=== PATIENT | female | born 1990 | race American Indian/Alaskan Native ===

== ENCOUNTER 2021-11-06 08:52 | Emergency (ER) | payer BC ==
[2021-11-06 09:12] VITALS: BP 128/81
[2021-11-06 10:07] LABS: Mucus,Urine 3+ /HPF
[2021-11-06 10:09] LABS: RBC,Urine > 182.0 /HPF (0.0-6.0)
[2021-11-06] MEDS ORDERED: SODIUM CHLORIDE 0.9% 1000 ML 1,000 ML ONE (10:10)
[2021-11-06 10:13] LABS: Color,Urine Yellow (Yellow)
[2021-11-06] MEDS ORDERED: ONDANSETRON 4 MG/2 ML INJ ONE (10:13)
[2021-11-06 10:18] LABS: Basophils % (Auto) 0.2 % (0.0-1.8); Hematocrit 38.6 % (30.3-42.9); Hemoglobin 13.1 gm/dl (10.1-14.3); Lymphocytes # (Auto) 1.5 K/mm3 (1.2-5.4); Lymphocytes % (Auto) 19.3 % (13.4-35.0); Mean Corpuscular HGB Conc 34 % (30-34); Mean Corpuscular Volume 96 fl (79-97); Monocytes # (Auto) 0.8 K/mm3 (0.0-0.8); Monocytes % (Auto) 9.8 % (0.0-7.3); Platelet Count 215 K/mm3 (140-440); Red Blood Count 4.02 M/mm3 (3.65-5.03)
[2021-11-06] MEDS ORDERED: ONDANSETRON 4 MG/2 ML INJ IV ONE ×2 (10:30→11:49)
[2021-11-06] MEDS ORDERED: SODIUM CHLORIDE 0.9% 1000 ML 1,000 ML IV ONE (10:30)
[2021-11-06 10:35] LABS: Alanine Aminotransferase 11 units/L (7-56); Albumin 5.5 g/dL (3.9-5); Blood Urea Nitrogen 14 mg/dL (7-17); Calcium 10.4 mg/dL (8.4-10.2); Hemolysis Index 4
[2021-11-06 10:46] LABS: BUN/Creatinine Ratio 23
[2021-11-06] MEDS ORDERED: cefTRIAXone/NS 1 GM/50 ML 1 GM/50 ML BAG IV ONE (11:49)
--- NOTE | 2021-11-06 12:09 | Emergency Department Report ---
ED Abdominal Pain HPI - General Chief Complaint: Nausea/Vomiting/Diarrhea Stated Complaint: VOMITTING PUI?: No Time Seen by Provider: 11/06/21 11:42 Source: patient Mode of arrival: Ambulatory Limitations: No Limitations - History of Present Illness Initial Comments: 31 yo comes to ER with 1 day hx on nausea/vomiting She has been seen at several hospitals for this in the past year. She has not follow up. She has been told this is related to her THC use. She continues to smoke weed. Abd pain only when vomiting no fever no chills no back pain no vag d/c or bleeding LMP 1 week ago Severity scale (0 -10): 7 - Related Data Previous Rx's Medication Instructions Recorded Last Taken Type Ondansetron [Zofran Odt] 4 mg PO Q8HR PRN #10 tab.rapdis 11/06/21 Unknown Rx Sulfamethoxazole/Trimethoprim 1 each PO BID #10 tablet 11/06/21 Unknown Rx [Bactrim DS TAB] Hyoscyamine Subl [Levsin Sl 0.125 0.125 mg SL Q6HR #20 tab 11/08/21 Unknown Rx TAB] Omeprazole 40 mg PO DAILY #30 11/08/21 Unknown Rx Ondansetron [Zofran Odt] 4 mg PO Q8HR #20 tab.rapdis 11/08/21 Unknown Rx Allergies Allergy/AdvReac Type Severity Reaction Status Date / Time No Known Allergies Allergy Verified 11/06/21 09:13 ED Review of Systems ROS: Stated complaint: VOMITTING Other details as noted in HPI Comment: All other systems reviewed and negative ED Past Medical Hx - Past Medical History Previous Medical History?: Yes - Surgical History Past Surgical History?: Yes Additional Surgical History: ACL RT KNEE 2012 - Family History Family history: no significant - Social History Smoking Status: Current Every Day Smoker Substance Use Type: Alcohol, Marijuana - Medications Home Medications: Home Medications Medication Instructions Recorded Confirmed Last Taken Type Ondansetron [Zofran Odt] 4 mg PO Q8HR PRN #10 tab.rapdis 11/06/21 Unknown Rx Sulfamethoxazole/Trimethoprim 1 each PO BID #10 tablet 11/06/21 Unknown Rx [Bactrim DS TAB] Hyoscyamine Subl [Levsin Sl 0.125 0.125 mg SL Q6HR #20 tab 11/08/21 Unknown Rx TAB] Omeprazole 40 mg PO DAILY #30 11/08/21 Unknown Rx Ondansetron [Zofran Odt] 4 mg PO Q8HR #20 tab.rapdis 11/08/21 Unknown Rx ED Physical Exam - General Limitations: No Limitations General appearance: alert, in no apparent distress - Head Head exam: Present: atraumatic, normocephalic - Eye Eye exam: Present: normal appearance - ENT ENT exam: Present: mucous membranes moist - Neck Neck exam: Present: normal inspection - Respiratory Respiratory exam: Present: normal lung sounds bilaterally. Absent: respiratory distress - Cardiovascular Cardiovascular Exam: Present: regular rate, normal rhythm. Absent: systolic murmur, diastolic murmur, rubs, gallop - GI/Abdominal GI/Abdominal exam: Present: soft, normal bowel sounds - Extremities Exam Extremities exam: Present: normal inspection - Back Exam Back exam: Present: normal inspection - Neurological Exam Neurological exam: Present: alert, oriented X3 - Psychiatric Psychiatric exam: Present: normal affect, normal mood - Skin Skin exam: Present: warm, dry, intact, normal color. Absent: rash ED Course Vital Signs 11/06/21 09:09 Temperature 98.6 F Pulse Rate 78 Respiratory 16 Rate Blood Pressure 128/81 [Right] O2 Sat by Pulse 100 Oximetry ED Medical Decision Making - Lab Data Result diagrams: 11/06/21 09:36 11/06/21 09:36 - Medical Decision Making Lab Results 11/06/21 11/06/21 11/06/21 Range/Units 09:27 09:36 09:36 WBC 7.9 (4.5-11.0) K/mm3 RBC 4.02 (3.65-5.03) M/mm3 Hgb 13.1 (10.1-14.3) gm/dl Hct 38.6 (30.3-42.9) % MCV 96 (79-97) fl MCH 33 H (28-32) pg MCHC 34 (30-34) % RDW 12.0 L (13.2-15.2) % Plt Count 215 (140-440) K/mm3 Lymph % (Auto) 19.3 (13.4-35.0) % [place] % (Auto) 9.8 H (0.0-7.3) % Eos % (Auto) 0.0 (0.0-4.3) % Baso % (Auto) 0.2 (0.0-1.8) % Lymph # (Auto) 1.5 (1.2-5.4) K/mm3 [place] # (Auto) 0.8 (0.0-0.8) K/mm3 Eos # (Auto) 0.0 (0.0-0.4) K/mm3 Baso # (Auto) 0.0 (0.0-0.1) K/mm3 Seg Neutrophils % 70.7 H (40.0-70.0) % Seg Neutrophils # 5.6 (1.8-7.7) K/mm3 Sodium 142 (137-145) mmol/L Potassium 3.9 (3.6-5.0) mmol/L Chloride 102.4 (98-107) mmol/L Carbon Dioxide 28 (22-30) mmol/L Anion Gap 16 mmol/L BUN 14 (7-17) mg/dL Creatinine 0.6 (0.6-1.2) mg/dL Estimated GFR > 60 ml/min BUN/Creatinine Ratio 23 % Glucose 117 H (65-100) mg/dL Calcium 10.4 H (8.4-10.2) mg/dL Total Bilirubin 0.80 (0.1-1.2) mg/dL AST 15 (5-40) units/L ALT 11 (7-56) units/L Alkaline Phosphatase 48 (35-129) units/L Total Protein 8.1 (6.3-8.2) g/dL Albumin 5.5 H (3.9-5) g/dL Albumin/Globulin Ratio 2.1 % Urine Color Yellow (Yellow) Urine Turbidity Cloudy (Clear) Specific [place] (Man) 1.020 (1.003-1.030) Ur Protein (Man) 2+ (Negative) mg/dL Ur Ketones (Man) Negative (Negative) Ur Nitrite (Man) Negative (Negative) Ur Reducing Substances Not Reportable Urine Bilirubin (Man) Negative (Negative) Urine Ictotest Not Reportable Leukocyte Esterase (Man) Trace (Negative) Urine WBC (Auto) 12.0 H (0.0-6.0) /HPF Urine RBC (Auto) > 182.0 (0.0-6.0) /HPF U Epithel Cells (Auto) 9.0 (0-13.0) /HPF Urine RBC (Manual) 3+ (Negative) Urine Mucus 3+ /HPF Vital Signs 11/06/21 09:09 Temperature 98.6 F Pulse Rate 78 Respiratory 16 Rate Blood Pressure 128/81 [Right] O2 Sat by Pulse 100 Oximetry labs noted ua noted 1L NS zofran x 2 rocephin 1 gm all while in ER on dc exam pt taking po dc home with dc plan of care including diet, meds, activity and follow up. - Differential Diagnosis uti/preg/gastrenteritis/thc/gastroparesis Critical care attestation.: If time is entered above; I have spent that time in minutes in the direct care of this critically ill patient, excluding procedure time. ED Disposition Clinical Impression: UTI (urinary tract infection), Tetrahydrocannabinol (THC) use disorder, mild, abuse, Nausea & vomiting Disposition: 01 HOME / SELF CARE / HOMELESS Is pt being admited?: No Does the pt Need Aspirin: No Condition: Stable Instructions: Cannabinoid Hyperemesis Syndrome Additional Instructions: med as ordered today stop smoking marijuana drink a lot of water follow up with pcp and GI MD as we discussed referral below Prescriptions: Sulfamethoxazole/Trimethoprim [Bactrim DS TAB] 1 each PO BID #10 tablet Ondansetron [Zofran Odt] 4 mg PO Q8HR PRN #10 tab.rapdis PRN Reason: Vomiting Referrals: MICHEAL FORREST MD [Staff Physician] - 3-5 Days KELLIE GALLOWAY MD [Staff Physician] - 3-5 Days Forms: Work/School Release Form(ED) Time of Disposition: 13:06
== END 2021-11-06 19:00 | disposition home or self-care (01) ==
LOC: ED 08:52
DX: N39.0 Urinary tract infection, site not specified (principal); R11.2 Nausea with vomiting, unspecified; F19.90 Other psychoactive substance use, unspecified, uncomplicated; F17.200 Nicotine dependence, unspecified, uncomplicated
CPT/HCPCS: 36415; 80053; 81001; 85025; 87086; 99283; J2405; J7030

== ENCOUNTER 2021-11-07 00:03 | Emergency (ER) | payer BC ==
[2021-11-07 00:16] VITALS: BP 118/70
== END 2021-11-07 05:05 | disposition left against medical advice (07) ==
LOC: ED 00:03
DX: R10.9 Unspecified abdominal pain (principal); Z53.21 Procedure and treatment not carried out due to patient leaving prior to being seen by health care provider

== ENCOUNTER 2021-11-07 17:22 | Emergency (ER) | payer BC ==
[2021-11-07 17:59] VITALS: BP 120/70
== END 2021-11-08 07:50 | disposition left against medical advice (07) ==
LOC: ED 17:22
DX: R04.2 Hemoptysis (principal); R10.9 Unspecified abdominal pain; Z53.21 Procedure and treatment not carried out due to patient leaving prior to being seen by health care provider

== ENCOUNTER 2021-11-08 05:35 | Emergency (ER) | payer BC ==
[2021-11-08 06:05] LABS: Basophils # (Auto) 0.1 K/mm3 (0.0-0.1); Basophils % (Auto) 0.9 % (0.0-1.8); Hematocrit 36.6 % (30.3-42.9); Hemoglobin 12.8 gm/dl (10.1-14.3); Lymphocytes # (Auto) 2.8 K/mm3 (1.2-5.4); Lymphocytes % (Auto) 42.7 % (13.4-35.0); Mean Corpuscular HGB Conc 35 % (30-34); Mean Corpuscular Volume 95 fl (79-97); Monocytes # (Auto) 0.7 K/mm3 (0.0-0.8); Monocytes % (Auto) 11.1 % (0.0-7.3); Platelet Count 206 K/mm3 (140-440); Red Blood Count 3.85 M/mm3 (3.65-5.03); Red Cell Distribution Width 11.7 % (13.2-15.2)
[2021-11-08 06:22] LABS: Alanine Aminotransferase 9 units/L (7-56); Albumin 5.1 g/dL (3.9-5); Blood Urea Nitrogen 20 mg/dL (7-17); Calcium 9.4 mg/dL (8.4-10.2); Hemolysis Index 10
[2021-11-08 06:26] LABS: BUN/Creatinine Ratio 29
[2021-11-08 10:08] LABS: HCG Qualitative,Urine Negative (Negative)
[2021-11-08] MEDS ORDERED: HYOSCYAMINE SUBL 0.125 MG TAB SL ONE (10:24)
[2021-11-08] MEDS ORDERED: METOCLOPRAMIDE 10 MG/2 ML INJ IV STA (10:24)
[2021-11-08] MEDS ORDERED: diphenhydrAMINE 50 MG/ML VIAL IV STA (10:24)
[2021-11-08] MEDS ORDERED: ONDANSETRON 4 MG/2 ML INJ IV STA ×2 (10:24→12:54)
--- NOTE | 2021-11-08 10:34 | Emergency Department Report ---
ED Abdominal Pain HPI - General Chief Complaint: Nausea/Vomiting/Diarrhea Stated Complaint: BLOOD IN VOMIT Time Seen by Provider: 11/08/21 10:07 Source: patient Mode of arrival: Ambulatory Limitations: No Limitations - History of Present Illness MD Complaint: abdominal pain -: Gradual, days(s) (5) Location: epigastric Radiation: none, LUQ Migration to: no migration Quality: cramping, stabbing Consistency: constant Improves With: nothing Worsens With: nothing Associated Symptoms: nausea, vomiting. denies: diarrhea, dysuria, hematemesis, hematuria, anorexia - Related Data Previous Rx's Medication Instructions Recorded Last Taken Type Ondansetron [Zofran Odt] 4 mg PO Q8HR PRN #10 tab.rapdis 11/06/21 Unknown Rx Sulfamethoxazole/Trimethoprim 1 each PO BID #10 tablet 11/06/21 Unknown Rx [Bactrim DS TAB] Hyoscyamine Subl [Levsin Sl 0.125 0.125 mg SL Q6HR #20 tab 11/08/21 Unknown Rx TAB] Omeprazole 40 mg PO DAILY #30 11/08/21 Unknown Rx Ondansetron [Zofran Odt] 4 mg PO Q8HR #20 tab.rapdis 11/08/21 Unknown Rx Allergies Allergy/AdvReac Type Severity Reaction Status Date / Time No Known Allergies Allergy Verified 11/06/21 09:13 ED Review of Systems ROS: Stated complaint: BLOOD IN VOMIT Other details as noted in HPI Comment: All other systems reviewed and negative ED Past Medical Hx - Surgical History Additional Surgical History: ACL RT KNEE 2012 - Social History Smoking Status: Current Every Day Smoker - Medications Home Medications: Home Medications Medication Instructions Recorded Confirmed Last Taken Type Ondansetron [Zofran Odt] 4 mg PO Q8HR PRN #10 tab.rapdis 11/06/21 Unknown Rx Sulfamethoxazole/Trimethoprim 1 each PO BID #10 tablet 11/06/21 Unknown Rx [Bactrim DS TAB] Hyoscyamine Subl [Levsin Sl 0.125 0.125 mg SL Q6HR #20 tab 11/08/21 Unknown Rx TAB] Omeprazole 40 mg PO DAILY #30 11/08/21 Unknown Rx Ondansetron [Zofran Odt] 4 mg PO Q8HR #20 tab.rapdis 11/08/21 Unknown Rx ED Physical Exam - General Limitations: No Limitations General appearance: alert, in no apparent distress - Head Head exam: Present: atraumatic, normocephalic - Eye Eye exam: Present: normal appearance, PERRL, EOMI Pupils: Present: normal accommodation - ENT ENT exam: Present: normal exam, normal orophraynx, mucous membranes moist, TM's normal bilaterally - Neck Neck exam: Present: normal inspection - Respiratory Respiratory exam: Present: normal lung sounds bilaterally. Absent: respiratory distress - Cardiovascular Cardiovascular Exam: Present: regular rate, normal rhythm. Absent: systolic murmur, diastolic murmur, rubs, gallop - GI/Abdominal GI/Abdominal exam: Present: soft, tenderness, normal bowel sounds. Absent: guarding, hyperactive bowel sounds, hypoactive bowel sounds - Extremities Exam Extremities exam: Present: normal inspection, full ROM, normal capillary refill - Back Exam Back exam: Present: normal inspection. Absent: CVA tenderness (R), CVA tenderness (L) - Neurological Exam Neurological exam: Present: alert, oriented X3, CN II-XII intact, normal gait - Psychiatric Psychiatric exam: Present: normal affect, normal mood - Skin Skin exam: Present: warm, dry, intact, normal color. Absent: rash ED Medical Decision Making - Lab Data Result diagrams: 11/08/21 05:47 11/08/21 05:47 - Medical Decision Making [facility] [address] [place] [address] Cat Scan Report Signed Patient: HANSEL GRUBBS MR#: [id number] : 1990 Acct:[id number] Age/Sex: 31 / F ADM Date: 11/08/21 Loc: ED Attending Dr: Ordering Physician: JOSE GARLAND Date of Service: 11/08/21 Procedure(s): CT abdomen pelvis w con Accession Number(s): [id number] cc: JOSE GARLAND CT ABDOMEN AND PELVIS WITH CONTRAST HISTORY: upper abdominal pain with nausea and vomiting wors. COMPARISON: None. TECHNIQUE: CT images of the abdomen and pelvis were obtained following administration of intravenous contrast. All CT scans at this location are performed using CT dose reduction for ALARA by means of automated exposure control. CONTRAST: 100 ml of intravenous contrast administered. FINDINGS: Lungs/bones: Lung bases are clear Abdomen/pelvis: The liver, spleen, adrenal glands, pancreas and gallbladder appears normal. Bilateral kidneys appear normal. The appendix appears normal. There is fluid in the endometrium. There may be a small amount of free fluid in the pelvis. No bowel obstruction is identified. No acute bone findings are seen. No bowel obstruction is identified. There is some questionable thickening of the pylorus and distal stomach. IMPRESSION: 1. Questionable thickening and inflammation within the distal stomach and pyloric region. Gastritis could have this appearance, nonspecific. Follow-up with GI. 2. Fluid in the endometrium. No other acute findings are seen. Signer Name: Ricky Ellsworth MD Signed: 11/08/2021 1:01 PM Workstation Name: [id number] Transcribed By: JUJU Dictated By: SARAH ELLSWORTH MD Electronically Authenticated By: SARAH ELLSWORTH MD Signed Date/Time: 11/08/21 1301 DD/ 1258 TD/TT: Critical care attestation.: If time is entered above; I have spent that time in minutes in the direct care of this critically ill patient, excluding procedure time. ED Disposition Clinical Impression: Gastritis Disposition: HOME / SELF CARE / HOMELESS Is pt being admited?: No Does the pt Need Aspirin: No Condition: Stable Instructions: Gastritis, Adult Prescriptions: Hyoscyamine Subl [Levsin Sl 0.125 TAB] 0.125 mg SL Q6HR #20 tab Omeprazole 40 mg PO DAILY #30 Ondansetron [Zofran Odt] 4 mg PO Q8HR #20 tab.brenda Referrals: MICHEAL FORREST MD [Primary Care Provider] - 3-5 Days
--- NOTE | 2021-11-08 13:05 | Cat Scan Report ---
CT ABDOMEN AND PELVIS WITH CONTRAST HISTORY: upper abdominal pain with nausea and vomiting wors. COMPARISON: None. TECHNIQUE: CT images of the abdomen and pelvis were obtained following administration of intravenous contrast. All CT scans at this location are performed using CT dose reduction for ALARA by means of automated exposure control. CONTRAST: 100 ml of intravenous contrast administered. FINDINGS: Lungs/bones: Lung bases are clear Abdomen/pelvis: The liver, spleen, adrenal glands, pancreas and gallbladder appears normal. Bilatera l kidneys appear normal. The appendix appears normal. There is fluid in the endometrium. There may be a small amount of free fluid in the pelvis. No bowel obstruction is identified. No acute bone findin gs are seen. No bowel obstruction is identified. There is some questionable thickening of the pylorus and distal stomach. IMPRESSION: 1. Questionable thickening and inflammation within the distal stomach and pyloric region. Gastritis c ould have this appearance, nonspecific. Follow-up with GI. 2. Fluid in the endometrium. No other acute findings are seen. Signer Name: Ricky Ellsworth MD Signed: 11/08/2021 1:01 PM Workstation Name: [id number]
== END 2021-11-08 15:41 | disposition home or self-care (01) ==
LOC: ED 05:35
DX: K29.70 Gastritis, unspecified, without bleeding (principal); F17.200 Nicotine dependence, unspecified, uncomplicated
CPT/HCPCS: 36415; 74177; 80053; 81025; 83690; 85025; 96374; 96375; 96376; 99284; J1200; J2405; J2765; Q9967